=== PATIENT | male | born 1985 | race Caucasian/White ===

== ENCOUNTER 2017-07-05 12:12 | Emergency (ER) | payer SELFPAY ==
[~2017-07-05] VITALS: Ht 180.3 cm; Wt 88.0 kg
[2017-07-05] MEDS ORDERED: IBUPROFEN 600MG TABLET PO ONE (13:00)
[2017-07-05] MEDS ORDERED: HYDROCODONE/ACETAMINOPHEN 5/325MG TABLET PO ONE (13:00)
[2017-07-05 13:03] VITALS: BP 133/88
== END 2017-07-05 19:53 | disposition left against medical advice (07) ==
LOC: ER 12:33
DX: M54.5 Low back pain (principal); I10 Essential (primary) hypertension
CPT/HCPCS: 99282

== ENCOUNTER 2021-09-06 12:03 | Emergency (ER) | payer MEDICAID ==
[~2021-09-06] VITALS: Ht 167.6 cm; Wt 77.0 kg
[2021-09-06 13:28] LABS: BASOPHILS % 0.6 % (0.0-2.0); HEMATOCRIT. 46.9 % (42.0-52.0); HEMOGLOBIN. 16.4 g/dL (14.0-18.0); LYMPHOCYTES % 27.9 % (20.0-50.0); MEAN CORPUSCULAR HEMOGLOBIN 29.9 pg (28.0-32.0); MEAN CORPUSCULAR VOLUME 85.7 fL (80.0-94.0); MEAN PLATELET VOLUME 8.3 fl (7.4-10.4); MONOCYTES % 5.1 % (2.0-8.0); NEUTROPHILS % 63.4 % (40.0-76.0); PLATELET 228 x1000/uL (130-400); RED BLOOD CELL COUNT 5.48 mill/uL (4.7-6.1); RED CELL DISTRIBUTION WIDTH 12.4 % (11.6-14.6)
[2021-09-06 13:35] LABS: CHLORIDE 101 mEq/L (98-107)
[2021-09-06 13:43] LABS: BETA HYDROXYBUTYRATE 0.1 mMol/L (0.0-0.3)
[2021-09-06] MEDS ORDERED: METF-416 MT (14:39)
[2021-09-06 15:07] VITALS: BP 150/96
== END 2021-09-06 15:08 | disposition home or self-care (01) ==
LOC: ER 12:03
DX: E11.65 Type 2 diabetes mellitus with hyperglycemia (principal); I10 Essential (primary) hypertension; Z98.890 Other specified postprocedural states
CPT/HCPCS: 36415; 80053; 82010; 82962; 85025; 99283

== ENCOUNTER 2023-10-03 14:30 | Inpatient (IN) | payer SELFPAY ==
[~2023-10-03] VITALS: Ht 172.7 cm; Wt 81.6 kg
[~2023-10-03 14:30] MED LIST: METF-416 MT
[2023-10-03] MEDS ORDERED: ACETAMINOPHEN 1000MG/100ML 100 ML IV ONE (15:00)
[2023-10-03 15:28] LABS: CLARITY URINE CLEAR (CLEAR); COLOR URINE DARK YELLOW (YELLOW); GLUCOSE URINE 3+ (NEGATIVE); KETONES URINE 1+ (NEGATIVE); LEUKOCYTE ESTERASE URINE 1+ (NEGATIVE); NITRITE URINE POSITIVE (NEGATIVE); OCCULT BLOOD URINE 1+ (NEGATIVE); PROTEIN URINE 1+ (NEGATIVE); SPECIFIC GRAVITY URINE 1.022 (1.005-1.030)
[2023-10-03] MEDS: SODIUM CHLORIDE 0.9% 1000ML BAG (SEPSIS BOLUS) IV ONE (15:36)
[2023-10-03] MEDS: CEFTRIAXONE 1GM/50ML 50 ML IV ONE (15:36)
[2023-10-03 15:59] LABS: BG BASE EXCESS -0.4 mmol/L (-2.0-2.0); BG CARBOXYHEMOGLOBIN 1.3 % (0.5-1.5); BG DEOXYHEMOGLOBIN 1.9 % (0.0-5.0); BG FRACTION INSPIRED OXYGEN 21; BG HCO3 ACT 19.2 mmol/L (22.0-26.0); BG METHEMOGLOBIN 0.3 % (0.0-1.5); BG OXYGEN SATURATION 98.1 % (92.0-98.5); BG OXYHEMOGLOBIN 96.5 % (94.0-97.0); BG PCO2 21.2 mmHg (35.0-45.0); BG PH 7.575 (7.350-7.450); BG PO2 91.5 mmHg (75.0-100.0); BG SAMPLE SITE LEFT BRACHIAL; BG VENT MODE ROOM AIR
[2023-10-03 16:14] LABS: HEMATOCRIT. 38.6 % (42.0-52.0); HEMOGLOBIN. 13.8 g/dL (14.0-18.0); MEAN CORPUSCULAR HEMOGLOBIN 30.6 pg (28.0-32.0); MEAN CORPUSCULAR HGB CONC 35.7 g/dL (31.0-37.0); MEAN CORPUSCULAR VOLUME 85.8 fL (80.0-94.0); PLATELET 171 x1000/uL (130-400); RED CELL DISTRIBUTION WIDTH 12.3 % (11.6-14.6); WHITE BLOOD COUNT 11.2 x1000/uL (4.5-11.0)
[2023-10-03 16:18] LABS: DIFFERENTIAL COMMENT 1
[2023-10-03 16:22] LABS: CARBON DIOXIDE 22 mEq/L (21-32); CHLORIDE 99 mEq/L (98-107); POTASSIUM 3.1 mEq/L (3.5-5.1); SODIUM 131 mEq/L (136-145)
[2023-10-03 16:23] LABS: CALCIUM 8.9 mg/dL (8.7-10.4)
[2023-10-03 16:27] LABS: CREATININE 0.9 mg/dL (0.6-1.3); GLUCOSE 375 mg/dL (70-105)
[2023-10-03 16:28] LABS: TROPONIN I HIGH SENSITIVITY 19 ng/L (3.0-53); UREA NITROGEN BLOOD 10 mg/dL (9-23)
[2023-10-03 16:29] LABS: ALANINE AMINOTRANSFERASE 42 IU/L (10-49); ASPARTATE AMINOTRANSFERASE 55 IU/L (<34); PROTHROMBIN TIME 10.8 sec (9.6-11.0)
[2023-10-03 16:30] LABS: ALBUMIN 4.3 g/dL (3.2-4.8); BETA HYDROXYBUTYRATE 0.8 mMol/L (0.0-0.3); BILIRUBIN DIRECT 0.5 mg/dL (<=3.0); BILIRUBIN TOTAL 1.2 mg/dL (0.1-1.0); PROTEIN TOTAL 6.9 g/dL (6.0-8.3)
[2023-10-03 16:31] LABS: BACTERIA URINE 1+; RBC URINE 0-2 /hpf (0-2); SQUAMOUS EPITHELIAL CELL URINE FEW /lpf (RARE/1+)
[2023-10-03] MEDS: ACETAMINOPHEN 1000MG/100ML 100 ML IV SCH (16:50)
[2023-10-03 16:58] LABS: PLATELET ESTIMATE NORMAL
[2023-10-03] MEDS: POTASSIUM CHLORIDE 20MEQ/PACKET PO NR (18:32)
[2023-10-03 20:00] VITALS: BP 119/74; PULSE 80; RESP 18; TEMP 98.1
[2023-10-03] MEDS ORDERED: IPRATROPIUM/ALBUTEROL 0.5-3(2.5)MG/3ML NEB HHN PRN (20:00)
[2023-10-03] MEDS ORDERED: ONDANSETRON HCL 4MG/2ML INJ IV PRN (20:00)
[2023-10-03] MEDS ORDERED: DIPHENHYDRAMINE 50MG/ML VIAL IV PRN (20:00)
[2023-10-03] MEDS ORDERED: CLONIDINE 0.1MG TABLET PO PRN (20:00)
[2023-10-03] MEDS ORDERED: DEXTROSE 50% WATER 50ML SYRINGE IV PRN (22:15)
[2023-10-03] MEDS: ACETAMINOPHEN 325MG TABLET PO PRN (23:20)
[2023-10-03] MEDS: INSULIN LISPRO 100 UNITS/ML SUBCUT SCH (23:30)
[2023-10-03] MEDS: BLOOD SUGAR DIAGNOSTIC STRIP TEST SCH (23:34)
[2023-10-03] MEDS: IOHEXOL-300 100 ML BOTTLE ONE (23:36)
[2023-10-04] VITALS: BP 114/74; PULSE 79; RESP 18; TEMP 98
[2023-10-04 04:00] VITALS: BP 115/72; PULSE 76; RESP 18; TEMP 98.2
[2023-10-04 09:15] VITALS: BP 127/83; PULSE 93; RESP 18; TEMP 99.5
[2023-10-04 09:19] LABS: BASOPHILS % 0.2 % (0.0-2.0); EOSINOPHILS % 0.1 % (0.0-5.0); HEMATOCRIT. 40.6 % (42.0-52.0); HEMOGLOBIN. 14.2 g/dL (14.0-18.0); LYMPHOCYTES % 7.6 % (20.0-50.0); MEAN CORPUSCULAR HEMOGLOBIN 30.8 pg (28.0-32.0); MEAN CORPUSCULAR HGB CONC 34.9 g/dL (31.0-37.0); MEAN CORPUSCULAR VOLUME 88.1 fL (80.0-94.0); MEAN PLATELET VOLUME 8.2 fl (7.4-10.4); MONOCYTES % 8.3 % (2.0-8.0); NEUTROPHILS % 83.8 % (40.0-76.0); PLATELET 187 x1000/uL (130-400); RED BLOOD CELL COUNT 4.61 mill/uL (4.7-6.1); RED CELL DISTRIBUTION WIDTH 12.5 % (11.6-14.6); WHITE BLOOD COUNT 10.5 x1000/uL (4.5-11.0)
[2023-10-04 09:26] LABS: CHLORIDE 100 mEq/L (98-107); POTASSIUM 3.7 mEq/L (3.5-5.1); SODIUM 132 mEq/L (136-145)
[2023-10-04 09:27] LABS: CALCIUM 9.6 mg/dL (8.7-10.4); CARBON DIOXIDE 21 mEq/L (21-32)
[2023-10-04 09:32] LABS: CREATININE 0.9 mg/dL (0.6-1.3); GLUCOSE 303 mg/dL (70-105); UREA NITROGEN BLOOD 9 mg/dL (9-23)
[2023-10-04 11:46] VITALS: BP 123/80; PULSE 90; RESP 20; TEMP 99.1
[2023-10-04] MEDS: CEFTRIAXONE 1GM/50ML 50 ML IV SCH (14:27)
[2023-10-04 16:00] VITALS: BP 120/80; PULSE 86; RESP 18; TEMP 101.7
[2023-10-04 20:00] VITALS: BP 118/82; PULSE 88; RESP 18; TEMP 99
[2023-10-05] VITALS: BP 131/83; PULSE 86; RESP 18; TEMP 98.7
[2023-10-05 04:00] VITALS: BP 125/78; PULSE 94; RESP 18; TEMP 102.9
[2023-10-05 08:00] VITALS: BP 113/72; PULSE 84; RESP 18; TEMP 100.2
[2023-10-05 12:00] VITALS: BP 109/76; PULSE 69; RESP 18; TEMP 98.6
[2023-10-05 16:00] VITALS: BP 115/70; PULSE 82; RESP 18; TEMP 100.2; TEMP 98.4
[2023-10-05 17:54] VITALS: BP 115/70; PULSE 82; RESP 18; TEMP 100.2
[2023-10-05] MEDS: INSULIN GLARGINE 100 UNITS/ML SUBCUT SCH (21:17)
[2023-10-06 04:00] VITALS: BP 109/78; PULSE 70; RESP 18; TEMP 99.7
[2023-10-06 05:38] LABS: CALCIUM 9.1 mg/dL (8.7-10.4); CHLORIDE 98 mEq/L (98-107); POTASSIUM 3.6 mEq/L (3.5-5.1); SODIUM 132 mEq/L (136-145)
[2023-10-06 05:39] LABS: CARBON DIOXIDE 24 mEq/L (21-32)
[2023-10-06 05:44] LABS: CREATININE 0.9 mg/dL (0.6-1.3); GLUCOSE 308 mg/dL (70-105); UREA NITROGEN BLOOD 15 mg/dL (9-23)
[2023-10-06 06:44] LABS: HEMATOCRIT. 37.8 % (42.0-52.0); HEMOGLOBIN. 13.4 g/dL (14.0-18.0); MEAN CORPUSCULAR HEMOGLOBIN 30.9 pg (28.0-32.0); MEAN CORPUSCULAR HGB CONC 35.6 g/dL (31.0-37.0); MEAN CORPUSCULAR VOLUME 86.9 fL (80.0-94.0); MEAN PLATELET VOLUME 7.9 fl (7.4-10.4); PLATELET 235 x1000/uL (130-400); RED BLOOD CELL COUNT 4.35 mill/uL (4.7-6.1); WHITE BLOOD COUNT 7.3 x1000/uL (4.5-11.0)
[2023-10-06 07:27] LABS: DIFFERENTIAL COMMENT 1
[2023-10-06 08:00] VITALS: BP 118/81; PULSE 75; RESP 18; TEMP 98
[2023-10-06 12:00] VITALS: BP 122/82; PULSE 67; RESP 18; TEMP 98
[2023-10-06] MEDS ORDERED: LANTUSUD SUBCUT (12:21)
[2023-10-06] MEDS ORDERED: NITR100C MT (12:21)
[2023-10-06 14:23] LABS: PLATELET ESTIMATE NORMAL
[2023-10-06 16:00] VITALS: BP 149/90; PULSE 74; RESP 18; TEMP 97.6
[2023-10-06 20:00] VITALS: BP 120/80; PULSE 67; RESP 18; TEMP 97.7
[2023-10-07] VITALS: BP 114/81; PULSE 67; RESP 18; TEMP 98
[2023-10-07 04:00] VITALS: BP 105/72; PULSE 65; RESP 17; TEMP 98.2
[2023-10-07 08:00] VITALS: BP 101/70; PULSE 68; RESP 18; TEMP 97.4
[2023-10-07] MEDS ORDERED: METF-416 MT (11:10)
[2023-10-07 12:00] VITALS: BP 112/76; PULSE 66; RESP 18; TEMP 100.8
[2023-10-07 14:14] VITALS: BP 112/76; PULSE 66; TEMP 98.8; O2SAT 97
== END 2023-10-07 15:21 | disposition home or self-care (01) | DRG 720 ==
LOC: ER 14:30 → EDBEDREQ 14:57 → EDBEDREQTM 16:32 → EDBEDREQ 16:32 → 5WST 18:31 → 7EST 10-04 09:08
PROVIDERS: ADMIT Internal Medicine; ATTEND Internal Medicine
DX: A41.9 Sepsis, unspecified organism (principal); N12 Tubulo-interstitial nephritis, not specified as acute or chronic; E11.65 Type 2 diabetes mellitus with hyperglycemia; B96.20 Unspecified Escherichia coli [E. coli] as the cause of diseases classified elsewhere; E87.6 Hypokalemia; B96.89 Other specified bacterial agents as the cause of diseases classified elsewhere; Z16.11 Resistance to penicillins; I10 Essential (primary) hypertension
CPT/HCPCS: 36415; 36600; 71045; 74177; 80048; 80076; 81003; 82010; 82375; 82805; 82962; 83036; 83605; 84145; 84484; 85025; 87077; 87186; 93005; 93970; 99291; J0696; J1815; J7030; Q9967; J0131